=== PATIENT | female | born 1960 | race Caucasian/White ===

== ENCOUNTER 2021-10-22 01:23 | Emergency (ER) | payer BC ==
[~2021-10-22] VITALS: Ht 165.1 cm; Wt 70.3 kg
[2021-10-22 01:23] VITALS: BP_SYST 160
--- NOTE | 2021-10-22 01:23 | NUR ---
Patient triaged and placed in waiting room. VSS and patient appears in no acute distress at this time. Accompanied by , awaiting bed, and MD Cross notified of need for MSE.
--- NOTE | 2021-10-22 01:31 | NUR ---
Placed in room 03. Placed on blood pressure machine and pulse oximeter. To gown for exam. Side rails up. Report given to STEFANIA Currie.
[2021-10-22 04:04] VITALS: BP_SYST 130
--- NOTE | 2021-10-22 04:27 | NUR ---
Pt DC per MD's order DC instructions given to pt AOX4 VSS Able to make needs known No acute distress at this time Pt exited ED in stable gait
== END 2021-10-22 04:26 | disposition home or self-care (01) ==
LOC: SED 01:23
DX: R04.0 Epistaxis (principal); I10 Essential (primary) hypertension; J90 Pleural effusion, not elsewhere classified; Z92.21 Personal history of antineoplastic chemotherapy
CPT/HCPCS: 71045; 99283